=== PATIENT | male | born 1955 | race Caucasian/White ===

== ENCOUNTER 2020-09-28 09:02 | Emergency (ER) | payer BC ==
[~2020-09-28] VITALS: Ht 185.4 cm; Wt 125.0 kg
[2020-09-28 09:08] VITALS: BP 140/78; Ht 185.4 cm; Wt 125.0 kg
[2020-09-28] MEDS ORDERED: HYDROCODON-ACE1 EAC7 PO (09:20)
[2020-09-28] MEDS ORDERED: PREDNISONE20 MG PO (09:20)
== END 2020-09-28 09:33 | disposition home or self-care (01) ==
LOC: D.ER 09:02
DX: M25.532 Pain in left wrist (principal); M10.032 Idiopathic gout, left wrist